=== PATIENT | male | born 1980 | race Caucasian/White ===

== ENCOUNTER → 2023-06-04 | Outpatient (CLI) | payer OTHER | LOC: M SLEEP 20:00 | PROVIDERS: ATTEND Nurse Practitioner Family | DX: G47.33 Obstructive sleep apnea (adult) (pediatric) (principal) ==

== ENCOUNTER 2023-10-07 09:34 | Day surgery (SDC) | payer OTHER ==
[~2023-10-07] VITALS: Ht 195.6 cm; Wt 156.4 kg
[~2023-10-07 09:34] MED LIST: LORA-243 PO; MONT-5 PO; NS 1,000 ML IV ONE; PRAV10TA3 PO; PROA1AER2 INH; VITA100093 PO
[2023-10-07 11:05] VITALS: TEMP 98.1
[2023-10-07] MEDS ORDERED: propofoL 200 MG/20 ML VIAL As Ordered ONE (11:05)
[2023-10-07] MEDS ORDERED: LIDOCAINE 2% 100MG/5ML SDV (FOR ANES.) As Ordered ONE (11:05)
[2023-10-07 11:20] VITALS: BP 152/89; O2SAT 97
== END 2023-10-07 11:32 | disposition home or self-care (01) ==
LOC: M OPP 09:34
PROVIDERS: ATTEND Internal Medicine Gastroenterology
DX: Z86.010 Personal history of colon polyps (principal); K64.0 First degree hemorrhoids; E78.5 Hyperlipidemia, unspecified; J45.909 Unspecified asthma, uncomplicated; Z79.899 Other long term (current) drug therapy